=== PATIENT | male | born 1995 | race Caucasian/White ===

== ENCOUNTER 2023-09-27 11:21 | Outpatient (CLI) | payer MEDICARE, MEDICAID | END 2023-09-27 23:59 | disposition home or self-care (01) | LOC: CARD DIAG 11:21 | PROVIDERS: ATTEND Student in an Organized Health Care Education/Training Program | DX: I08.0 Rheumatic disorders of both mitral and aortic valves (principal); R06.02 Shortness of breath; M54.50 Low back pain, unspecified; M54.6 Pain in thoracic spine | CPT/HCPCS: 72070; 72100; C8929; 93306 ==